=== PATIENT | male | born 1950 | race Two or more races ===

== ENCOUNTER 2017-10-22 16:11 | Inpatient (IN) | payer SELFPAY ==
[~2017-10-22] VITALS: Ht 165.1 cm; Wt 59.9 kg
[~2017-10-22 16:11] MED LIST: INSULIN GLARGINE UD 100 UNITS/ML SYR SUBCUT SCH
[2017-10-22] MEDS ORDERED: SODIUM CHLORIDE 0.9% 1,000 ML IV ONE (17:20)
[2017-10-22] MEDS ORDERED: TETANUS, DIPHTHERIA, PERTUSSIS VAC/PF 0.5ML (>7YR OLD) IM ONE (17:30)
[2017-10-22] MEDS ORDERED: BACITRACIN ZINC OINT UDPKT TOP ONE (17:30)
[2017-10-22 19:33] LABS: BASOPHILS % 0.7 % (0.0-2.0); EOSINOPHILS % 0.5 % (0.0-5.0); HEMATOCRIT. 34.4 % (42.0-52.0); HEMOGLOBIN. 11.6 g/dL (14.0-18.0); MEAN CORPUSCULAR HEMOGLOBIN 29.6 pg (28.0-32.0); MEAN CORPUSCULAR VOLUME 87.5 fL (80.0-94.0); MEAN PLATELET VOLUME 10.8 fl (7.4-10.4); MONOCYTES % 5.7 % (2.0-8.0); NEUTROPHILS % 81.1 % (40.0-76.0); PLATELET 205 x1000/uL (130-400); RED BLOOD CELL COUNT 3.93 mill/uL (4.7-6.1)
[2017-10-22 19:36] LABS: CLARITY URINE CLEAR (CLEAR); COLOR URINE YELLOW (YELLOW); KETONES URINE NEGATIVE (NEGATIVE); LEUKOCYTE ESTERASE URINE NEGATIVE (NEGATIVE); NITRITE URINE NEGATIVE (NEGATIVE); OCCULT BLOOD URINE NEGATIVE (NEGATIVE); PROTEIN URINE TRACE (NEGATIVE); SPECIFIC GRAVITY URINE 1.026 (1.005-1.030); UROBILINOGEN URINE 0.2 E.U./dL (0.2-1.0)
[2017-10-22 19:36] LABS: CHLORIDE 107 mEq/L (98-107)
[2017-10-22 19:38] LABS: D-DIMER 0.59 mg/L FEU (<0.50); PROTHROMBIN TIME 10.6 sec (9.4-11.6)
[2017-10-22 19:42] LABS: ETHANOL BLOOD < 10 mg/dL
[2017-10-22 19:46] LABS: BETA HYDROXYBUTYRATE 0.4 mMol/L (0.0-0.3)
[2017-10-22 19:47] LABS: CREATINE KINASE 63 IU/L (39-308)
[2017-10-22 19:48] LABS: *AMPHETAMINES SCREEN URINE NEGATIVE (NEGATIVE); CANNABINOID URINE SCREEN NEGATIVE (NEGATIVE); METHADONE URINE SCREEN NEGATIVE (NEGATIVE); OPIATES URINE SCREEN NEGATIVE (NEGATIVE); PHENCYCLIDINE URINE SCREEN NEGATIVE (NEGATIVE)
[2017-10-22 19:49] LABS: *BARBITURATES SCREEN URINE NEGATIVE (NEGATIVE); *BENZODIAZEPINES SCREEN URINE NEGATIVE (NEGATIVE); *COCAINE SCREEN URINE NEGATIVE (NEGATIVE)
[2017-10-22] MEDS ORDERED: IBUPROFEN 400MG TABLET PO ONE (22:00)
[2017-10-22] MEDS ORDERED: HYDROCODONE/ACETAMINOPHEN 5/325MG TABLET PO ONE (22:00)
[2017-10-22] MEDS ORDERED: MAGNESIUM/ALUMINUM HYDROXIDE/SIMETHICONE 30ML UDC PO PRN (22:30)
[2017-10-22] MEDS ORDERED: CLONIDINE 0.1MG TABLET PO PRN (22:30)
[2017-10-22] MEDS ORDERED: ONDANSETRON 4MG ODT PO PRN (22:30)
[2017-10-22] MEDS ORDERED: IPRATROPIUM/ALBUTEROL 0.5-3(2.5)MG/3ML NEB INH PRN (22:30)
[2017-10-22] MEDS ORDERED: ACETAMINOPHEN 325MG TABLET PO PRN (22:30)
[2017-10-22] MEDS ORDERED: NA PHOS,M-B/NA PHOS,DI-BA ENEMA 118ML PR PRN (22:30)
[2017-10-22] MEDS ORDERED: GUAIFENESIN 200MG/10ML SUGAR FREE UDC PO PRN (22:30)
[2017-10-22] MEDS ORDERED: DEXTROSE 50% WATER 50ML SYRINGE IV PRN (22:30)
[2017-10-22] MEDS ORDERED: TRAMADOL 50MG TABLET PO PRN (22:30)
[2017-10-22] MEDS ORDERED: DOCUSATE SODIUM 100MG CAPSULE PO PRN (22:30)
[2017-10-22] MEDS ORDERED: NITROGLYCERIN 0.4MG TABLET SL SL PRN (23:00)
[2017-10-22] MEDS ORDERED: KETOROLAC 15MG/ML VIAL IV PRN (23:45)
[2017-10-23] MEDS: SODIUM CHLORIDE 0.9% 1,000 ML IV SCH ×2 (06:00→19:20)
[2017-10-23 06:37] VITALS: BP 147/76
[2017-10-23] MEDS: BLOOD SUGAR DIAGNOSTIC STRIP TEST SCH ×4 (07:59→19:56)
[2017-10-23 08:00] VITALS: BP 152/69
[2017-10-23] MEDS: INSULIN LISPRO 100 UNITS/ML SUBCUT SCH ×4 (08:00→20:06)
[2017-10-23] MEDS: ZINC SULFATE 220 MG ( 50 ) CAPSULE PO SCH (08:48)
[2017-10-23] MEDS: METOPROLOL TARTRATE 25MG TABLET PO SCH ×2 (08:49→20:33)
[2017-10-23] MEDS: ASCORBIC ACID 500 MG TABLET PO SCH ×2 (08:49→20:32)
[2017-10-23] MEDS: ENOXAPARIN 40MG/0.4ML SYR SUBCUT SCH (08:51)
[2017-10-23] MEDS ORDERED: ASPIRIN 325MG EC TABLET PO SCH (09:00)
[2017-10-23 09:42] VITALS: BP 147/76
[2017-10-23 09:50] LABS: CREATINE KINASE MB FRACTION 2.5 ng/mL (0.5-3.6)
[2017-10-23] MEDS: INSULIN GLARGINE UD 100 UNITS/ML SYR SUBCUT SCH (10:52)
[2017-10-23 12:00] VITALS: BP 130/79
[2017-10-23] MEDS: CLOPIDOGREL 75MG TABLET PO SCH (13:32)
[2017-10-23 16:00] VITALS: BP 114/60
[2017-10-23 16:14] LABS: CREATINE KINASE 145 IU/L (39-308)
[2017-10-23 16:15] LABS: CREATINE KINASE MB FRACTION 2.7 ng/mL (0.5-3.6)
[2017-10-23 18:54] LABS: TOTAL IRON BINDING CAPACITY 224 ug/dL (250-450)
[2017-10-23 20:00] VITALS: BP 142/86
[2017-10-23] MEDS: ZOLPIDEM TARTRATE 5MG TABLET PO PRN (20:32)
[2017-10-23] MEDS: ATORVASTATIN CALCIUM 10MG TABLET PO SCH (20:32)
[2017-10-24] VITALS: BP 138/70
[2017-10-24 04:00] VITALS: BP 130/57
[2017-10-24] MEDS: BLOOD SUGAR DIAGNOSTIC STRIP TEST SCH ×4 (05:43→20:19)
[2017-10-24] MEDS: INSULIN LISPRO 100 UNITS/ML SUBCUT SCH ×4 (05:43→20:19)
[2017-10-24 08:00] VITALS: BP 124/62
[2017-10-24] MEDS: SODIUM CHLORIDE 0.9% 1,000 ML IV SCH (08:40)
[2017-10-24] MEDS: METOPROLOL TARTRATE 25MG TABLET PO SCH ×2 (10:06→20:24)
[2017-10-24] MEDS: ENOXAPARIN 40MG/0.4ML SYR SUBCUT SCH (10:08)
[2017-10-24] MEDS: ASCORBIC ACID 500 MG TABLET PO SCH ×2 (10:09→20:24)
[2017-10-24] MEDS: CLOPIDOGREL 75MG TABLET PO SCH (10:09)
[2017-10-24] MEDS: INSULIN GLARGINE UD 100 UNITS/ML SYR SUBCUT SCH (10:11)
[2017-10-24] MEDS: ZINC SULFATE 220 MG ( 50 ) CAPSULE PO SCH (10:12)
[2017-10-24 12:00] VITALS: BP 118/69
[2017-10-24 16:00] VITALS: BP_SYST 117; BP_SYST 118; BP_DIAS 56; BP_DIAS 69
[2017-10-24 19:59] VITALS: BP 115/57
[2017-10-24] MEDS: ATORVASTATIN CALCIUM 10MG TABLET PO SCH (20:24)
[2017-10-24] MEDS: ZOLPIDEM TARTRATE 5MG TABLET PO PRN (20:24)
[2017-10-25] VITALS: BP 137/80
[2017-10-25 04:00] VITALS: BP 120/70
[2017-10-25] MEDS: BLOOD SUGAR DIAGNOSTIC STRIP TEST SCH ×4 (05:54→20:24)
[2017-10-25] MEDS: INSULIN LISPRO 100 UNITS/ML SUBCUT SCH ×4 (05:54→20:25)
[2017-10-25 08:00] VITALS: BP 115/67
[2017-10-25] MEDS: METOPROLOL TARTRATE 25MG TABLET PO SCH ×2 (09:21→20:25)
[2017-10-25] MEDS: ZINC SULFATE 220 MG ( 50 ) CAPSULE PO SCH (09:21)
[2017-10-25] MEDS: ENOXAPARIN 40MG/0.4ML SYR SUBCUT SCH (09:21)
[2017-10-25] MEDS: ASCORBIC ACID 500 MG TABLET PO SCH ×2 (09:21→20:23)
[2017-10-25] MEDS: CLOPIDOGREL 75MG TABLET PO SCH (09:21)
[2017-10-25] MEDS: INSULIN GLARGINE UD 100 UNITS/ML SYR SUBCUT SCH (10:36)
[2017-10-25 12:00] VITALS: BP 109/54
[2017-10-25 16:00] VITALS: BP 108/60
[2017-10-25 20:00] VITALS: BP 109/55
[2017-10-25] MEDS: ATORVASTATIN CALCIUM 10MG TABLET PO SCH (20:23)
[2017-10-25] MEDS: SODIUM CHLORIDE 0.9% 1,000 ML IV SCH (20:32)
[2017-10-26] VITALS (7 sets, daily range): BP systolic 102–147; BP diastolic 57–82
[2017-10-26] MEDS: SODIUM CHLORIDE 0.9% 1,000 ML IV SCH ×3 (00:50→21:55)
[2017-10-26] MEDS: BLOOD SUGAR DIAGNOSTIC STRIP TEST SCH ×4 (06:52→21:54)
[2017-10-26] MEDS: INSULIN LISPRO 100 UNITS/ML SUBCUT SCH ×4 (06:53→21:00)
[2017-10-26] MEDS: METOPROLOL TARTRATE 25MG TABLET PO SCH ×2 (09:47→21:54)
[2017-10-26] MEDS: ENOXAPARIN 40MG/0.4ML SYR SUBCUT SCH (09:47)
[2017-10-26] MEDS: ASCORBIC ACID 500 MG TABLET PO SCH ×2 (09:47→21:54)
[2017-10-26] MEDS: ZINC SULFATE 220 MG ( 50 ) CAPSULE PO SCH (09:47)
[2017-10-26] MEDS: CLOPIDOGREL 75MG TABLET PO SCH (09:47)
[2017-10-26] MEDS: INSULIN GLARGINE UD 100 UNITS/ML SYR SUBCUT SCH (10:17)
[2017-10-26] MEDS: ATORVASTATIN CALCIUM 10MG TABLET PO SCH (21:54)
[2017-10-27] VITALS: BP 128/65
[2017-10-27 04:00] VITALS: BP 126/68
[2017-10-27 06:19] LABS: HEMATOCRIT 35.1 % (42.0-52.0); HEMOGLOBIN 11.9 g/dL (14.0-18.0); MEAN CORPUSCULAR HEMOGLOBIN 29.8 pg (28.0-32.0); PLATELET 228 x1000/uL (130-400); RED BLOOD CELL COUNT 3.99 mill/uL (4.7-6.1); RED CELL DISTRIBUTION WIDTH 13.3 % (11.6-14.6)
[2017-10-27] MEDS: INSULIN LISPRO 100 UNITS/ML SUBCUT SCH ×2 (06:32→13:24)
[2017-10-27] MEDS: BLOOD SUGAR DIAGNOSTIC STRIP TEST SCH ×2 (06:32→12:10)
[2017-10-27 07:08] LABS: CHLORIDE 111 mEq/L (98-107)
[2017-10-27 08:00] VITALS: BP 157/66
[2017-10-27] MEDS: CLOPIDOGREL 75MG TABLET PO SCH (09:21)
[2017-10-27] MEDS: ENOXAPARIN 40MG/0.4ML SYR SUBCUT SCH (09:21)
[2017-10-27] MEDS: ZINC SULFATE 220 MG ( 50 ) CAPSULE PO SCH (09:21)
[2017-10-27] MEDS: METOPROLOL TARTRATE 25MG TABLET PO SCH (09:22)
[2017-10-27] MEDS: ASCORBIC ACID 500 MG TABLET PO SCH (09:24)
[2017-10-27] MEDS: SODIUM CHLORIDE 0.9% 1,000 ML IV SCH (09:37)
[2017-10-27 12:00] VITALS: BP 133/59
[2017-10-27 13:08] LABS: ANTI-CARDIOLIPIN AB IGA < 9 APL U/mL (0-11); ANTI-CARDIOLIPIN AB IGG < 9 GPL U/mL (0-14); ANTI-CARDIOLIPIN AB IGM < 9 MPL U/mL (0-12)
[2017-10-27] MEDS: INSULIN GLARGINE UD 100 UNITS/ML SYR SUBCUT SCH (13:25)
[2017-10-27 15:04] VITALS: BP 133/59
[2017-10-27 16:00] VITALS: BP 136/60
[2017-10-27] MEDS ORDERED: NITROGLYCERIN 0.4MG TABLET SL SL PRN (16:00)
[2017-10-28 06:13] LABS: ANTI-THROMBIN ACTIVITY 99 % (75-135); DILUTE RUSSELL VIPER VENOM TME 44.6 sec (0.0-47.0); PROTEIN C FUNCTIONAL 142 % (73-180)
[2017-10-28 08:35] LABS: LUPUS ANTICOAG INTERPRETATION Comment: (.); PTT-LA 34.9 sec (0.0-51.9)
== END 2017-10-27 16:30 | disposition home or self-care (01) | DRG 45 ==
LOC: ER 16:41 → 8WST 22:14 → ENRESERV 10-23 03:55
PROVIDERS: ADMIT Internal Medicine; ATTEND Internal Medicine
DX: I63.9 Cerebral infarction, unspecified (principal); N17.0 Acute kidney failure with tubular necrosis; G92 Toxic encephalopathy; E11.65 Type 2 diabetes mellitus with hyperglycemia; I10 Essential (primary) hypertension; D64.9 Anemia, unspecified; E78.00 Pure hypercholesterolemia, unspecified; R79.89 Other specified abnormal findings of blood chemistry; Y08.89XA Assault by other specified means, initial encounter; Y93.89 Activity, other specified; Y92.89 Other specified places as the place of occurrence of the external cause; Y99.8 Other external cause status; Z91.14 Patient's other noncompliance with medication regimen; Z86.73 Personal history of transient ischemic attack (TIA), and cerebral infarction without residual deficits
CPT/HCPCS: 36415; 70450; 70544; 70551; 71045; 80048; 80053; 80061; 80305; 81003; 81400; 81403; 81407; 81479; 82010; 82550; 82553; 82607; 82746; 82962; 83036; 83540; 83550; 83880; 84443; 84484; 85025; 85027; 85300; 85303; 85306; 85379; 85610; 85613; 86147; 90715; 92610; 93005; 93306; 93880; 93970; 96360; 96372; 97116; 97162; 97166; 97535; 99285; C1893; G0482; J1650; J1815; J7030

== ENCOUNTER 2019-11-14 12:05 | Inpatient (IN) | payer MEDICAID, OTHER ==
[~2019-11-14] VITALS: Ht 162.6 cm; Wt 65.0 kg
[2019-11-14 13:18] LABS: BASOPHILS % 0.5 % (0.0-2.0); EOSINOPHILS % 0.4 % (0.0-5.0); HEMATOCRIT. 34.3 % (42.0-52.0); HEMOGLOBIN. 11.2 g/dL (14.0-18.0); LYMPHOCYTES % 9.5 % (20.0-50.0); MEAN CORPUSCULAR HEMOGLOBIN 29.5 pg (28.0-32.0); MEAN CORPUSCULAR VOLUME 90.2 fL (80.0-94.0); MEAN PLATELET VOLUME 10.4 fl (7.4-10.4); MONOCYTES % 4.9 % (2.0-8.0); NEUTROPHILS % 84.7 % (40.0-76.0); PLATELET 256 x1000/uL (130-400); RED CELL DISTRIBUTION WIDTH 14.1 % (11.6-14.6)
[2019-11-14 13:27] LABS: CHLORIDE 118 mEq/L (98-107)
[2019-11-14] MEDS ORDERED: SODIUM CHLORIDE 0.9% 1,000 ML IV ONE ×2 (13:30→15:30)
[2019-11-14 13:31] LABS: ETHANOL BLOOD < 10 mg/dL
[2019-11-14] MEDS ORDERED: FUROSEMIDE 100MG/10ML VIAL IV ONE (13:45)
[2019-11-14] MEDS ORDERED: INSULIN REGULAR (HUMULIN R) 300UNITS/3ML IV ONE ×2 (13:45→15:15)
[2019-11-14 15:04] LABS: CLARITY URINE CLOUDY (CLEAR); COLOR URINE YELLOW (YELLOW); KETONES URINE NEGATIVE (NEGATIVE); LEUKOCYTE ESTERASE URINE NEGATIVE (NEGATIVE); NITRITE URINE NEGATIVE (NEGATIVE); OCCULT BLOOD URINE 1+ (NEGATIVE); PROTEIN URINE 1+ (NEGATIVE); SPECIFIC GRAVITY URINE 1.022 (1.005-1.030); UROBILINOGEN URINE 0.2 E.U./dL (0.2-1.0)
[2019-11-14 15:15] LABS: *AMPHETAMINES SCREEN URINE NEGATIVE (NEGATIVE); *BARBITURATES SCREEN URINE NEGATIVE (NEGATIVE); *BENZODIAZEPINES SCREEN URINE NEGATIVE (NEGATIVE); *COCAINE SCREEN URINE NEGATIVE (NEGATIVE)
[2019-11-14 15:16] LABS: CANNABINOID URINE SCREEN NEGATIVE (NEGATIVE); METHADONE URINE SCREEN NEGATIVE (NEGATIVE); OPIATES URINE SCREEN NEGATIVE (NEGATIVE); PHENCYCLIDINE URINE SCREEN NEGATIVE (NEGATIVE)
[2019-11-14] MEDS ORDERED: MAGNESIUM/ALUMINUM HYDROXIDE/SIMETHICONE 30ML UDC PO PRN (17:45)
[2019-11-14] MEDS ORDERED: CLONIDINE 0.1MG TABLET PO PRN (17:45)
[2019-11-14] MEDS ORDERED: ONDANSETRON HCL 4MG/2ML INJ IV PRN (17:45)
[2019-11-14] MEDS ORDERED: LEVOFLOXACIN 500MG PREMIX 100 ML IV NR (17:45)
[2019-11-14] MEDS ORDERED: GUAIFENESIN 200MG/10ML SUGAR FREE UDC PO PRN (17:45)
[2019-11-14] MEDS ORDERED: DOCUSATE SODIUM 100MG CAPSULE PO PRN (17:45)
[2019-11-14] MEDS ORDERED: ENOXAPARIN 40MG/0.4ML SYR SUBCUT SCH (17:45)
[2019-11-14] MEDS ORDERED: ACETAMINOPHEN 325MG TABLET PO PRN (17:45)
[2019-11-14] MEDS ORDERED: SODIUM POLYSTYRENE SULFONATE 15 G/60 ML BOT PO NR ×2 (17:45→22:15)
[2019-11-14] MEDS ORDERED: ENOXAPARIN 30MG/0.3ML SYR SUBCUT SCH (18:00)
[2019-11-14] MEDS: SODIUM CHLORIDE 0.9% 1,000 ML IV SCH (20:12)
[2019-11-15 08:48] LABS: CHLORIDE 122 mEq/L (98-107)
[2019-11-15] MEDS ORDERED: SODIUM BICARBONATE 8.4% 1 MEQ/ML 50ML SYR IV ONE (12:00)
[2019-11-15] MEDS ORDERED: LEVOFLOXACIN 250MG PREMIX 50 ML IV SCH (14:00)
[2019-11-15 14:17] VITALS: BP 156/88
[2019-11-15 14:19] VITALS: BP 156/88
[2019-11-15] MEDS ORDERED: METF500S7 PO (14:38)
[2019-11-15] MEDS ORDERED: GABA300S PO (14:38)
[2019-11-15] MEDS ORDERED: AMLO5TAB88 PO (14:38)
[2019-11-15] MEDS ORDERED: ATOR10TA69 PO (14:38)
[2019-11-15] MEDS ORDERED: CLOP75TA33 PO (14:38)
[2019-11-15] MEDS ORDERED: CHOL200077 PO (14:38)
[2019-11-15] MEDS ORDERED: TRAZ-251 PO (14:38)
[2019-11-15] MEDS ORDERED: FERR325T6 PO (14:38)
[2019-11-15] MEDS ORDERED: METO25TA6 PO (14:38)
[2019-11-15] MEDS ORDERED: ASPI-1158 PO (14:38)
[2019-11-15] MEDS ORDERED: LISI40TA4 PO (14:38)
[2019-11-15 16:00] VITALS: BP 157/84
[2019-11-15] MEDS ORDERED: SODIUM BICARBONATE 8.4% 1 MEQ/ML 50ML SYR IV NR (16:00)
[2019-11-15] MEDS: SODIUM CHLORIDE 0.9% 1,000 ML IV SCH ×2 (16:10→20:25)
[2019-11-15] MEDS: BLOOD SUGAR DIAGNOSTIC STRIP TEST SCH ×2 (16:45→20:34)
[2019-11-15] MEDS ORDERED: DEXTROSE 50% WATER 50ML SYRINGE IV PRN (16:45)
[2019-11-15] MEDS: INSULIN LISPRO 100 UNITS/ML SUBCUT SCH ×2 (17:34→20:34)
[2019-11-15 18:00] VITALS: BP 145/79
[2019-11-15] MEDS ORDERED: ENOXAPARIN 40MG/0.4ML SYR SUBCUT SCH (18:00)
[2019-11-15 19:10] LABS: BASOPHILS % 0.4 % (0.0-2.0); EOSINOPHILS % 1.1 % (0.0-5.0); HEMATOCRIT. 31.1 % (42.0-52.0); HEMOGLOBIN. 10.5 g/dL (14.0-18.0); MEAN CORPUSCULAR HEMOGLOBIN 29.1 pg (28.0-32.0); MEAN CORPUSCULAR VOLUME 86.5 fL (80.0-94.0); MEAN PLATELET VOLUME 9.7 fl (7.4-10.4); MONOCYTES % 6.2 % (2.0-8.0); NEUTROPHILS % 76.3 % (40.0-76.0); PLATELET 242 x1000/uL (130-400); RED BLOOD CELL COUNT 3.59 mill/uL (4.7-6.1); RED CELL DISTRIBUTION WIDTH 13.5 % (11.6-14.6)
[2019-11-15 20:01] VITALS: BP 153/86
[2019-11-15 22:00] VITALS: BP 153/85
[2019-11-15] MEDS: INSULIN GLARGINE UD 100 UNITS/ML SYR SUBCUT SCH (22:18)
[2019-11-16] VITALS (10 sets, daily range): BP systolic 132–163; BP diastolic 75–90
[2019-11-16] MEDS: SODIUM CHLORIDE 0.9% 1,000 ML IV SCH (05:38)
[2019-11-16] MEDS: BLOOD SUGAR DIAGNOSTIC STRIP TEST SCH ×2 (06:04→10:59)
[2019-11-16] MEDS: INSULIN LISPRO 100 UNITS/ML SUBCUT SCH ×2 (07:20→12:15)
[2019-11-16 09:44] LABS: BASOPHILS % 0.6 % (0.0-2.0); EOSINOPHILS % 3.6 % (0.0-5.0); HEMATOCRIT. 32.7 % (42.0-52.0); LYMPHOCYTES % 24.1 % (20.0-50.0); MEAN CORPUSCULAR HEMOGLOBIN 29.4 pg (28.0-32.0); MEAN CORPUSCULAR VOLUME 87.3 fL (80.0-94.0); MEAN PLATELET VOLUME 10.3 fl (7.4-10.4); MONOCYTES % 7.9 % (2.0-8.0); NEUTROPHILS % 63.8 % (40.0-76.0); PLATELET 238 x1000/uL (130-400); RED BLOOD CELL COUNT 3.75 mill/uL (4.7-6.1)
[2019-11-16] MEDS: INSULIN GLARGINE UD 100 UNITS/ML SYR SUBCUT SCH (10:59)
[2019-11-17] MEDS ORDERED: LEVOFLOXACIN 250MG TABLET PO SCH (11:00)
== END 2019-11-16 16:35 | disposition home or self-care (01) | DRG 469 ==
LOC: ER 12:20 → MICUSO 17:55 → EDBEDREQTM 18:01 → EDBEDREQSVC 18:01 → EDBEDREQ 18:01 → 3WST 11-15 12:28
PROVIDERS: ADMIT Hospitalist; ATTEND Hospitalist
DX: N17.0 Acute kidney failure with tubular necrosis (principal); G93.41 Metabolic encephalopathy; E87.5 Hyperkalemia; E11.65 Type 2 diabetes mellitus with hyperglycemia; I10 Essential (primary) hypertension; Z86.73 Personal history of transient ischemic attack (TIA), and cerebral infarction without residual deficits
CPT/HCPCS: 36415; 71045; 80048; 80053; 80305; 80320; 81003; 82010; 82140; 82962; 83036; 83615; 84132; 85025; 93005; 93970; 96374; 99285; J1650; J1815; J1940; J1956; J3490; J7030; G0480